=== PATIENT | male | born 1970 | race Caucasian/White ===

== ENCOUNTER 2017-03-24 13:19 | Emergency (ER) | payer OTHER ==
[2017-03-24 13:30] VITALS: TEMP 98.3; BMI 32.3
[2017-03-24] MEDS ORDERED: NAPROXEN 500 MG TABLET (FP) PO ONE (13:51)
[2017-03-24] MEDS ORDERED: CYCLOBENZAPRINE HCL 10 MG TABLET (FP) PO ONE (13:51)
[2017-03-24] MEDS ORDERED: CYCLOBENZAPRINE HCL 10 MG TABLET (FP) ONE (14:35)
[2017-03-24] MEDS ORDERED: NAPROXEN 500 MG TABLET (FP) ONE (14:35)
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
[2017-03-24 18:01] VITALS: BP 150/95; PULSE 86
== END 2017-03-24 18:01 | disposition home or self-care (01) ==
LOC: JER 13:19
DX: M25.512 Pain in left shoulder (principal); M25.562 Pain in left knee; V43.52XA Car driver injured in collision with other type car in traffic accident, initial encounter; Y92.414 Local residential or business street as the place of occurrence of the external cause; Y93.89 Activity, other specified; Y99.0 Civilian activity done for income or pay
CPT/HCPCS: 73030-TC-LT-FY; 73562-TC-LT-FY; 99282-25

== ENCOUNTER 2023-01-20 12:05 | Emergency (ER) | payer OTHER, BC ==
[2023-01-20] MEDS ORDERED: KETOROLAC TROMETHAMINE 30 MG/1 ML VIAL IM ONE (12:28)
[2023-01-20] MEDS ORDERED: diazePAM 5 MG TABLET PO ONE (12:28)
[2023-01-20] MEDS ORDERED: diazePAM 5 MG TABLET ONE (12:36)
[2023-01-20] MEDS ORDERED: KETOROLAC TROMETHAMINE 30 MG/1 ML VIAL ONE (12:36)
[2023-01-20 12:50] VITALS: BP 144/99; PULSE 87; RESP 16; TEMP 97.8; BMI 33.3
== END 2023-01-20 14:00 | disposition home or self-care (01) ==
LOC: FER 12:05
PROC: 3E0233Z Introduction of Anti-inflammatory into Muscle, Percutaneous Approach (ICD-10-PCS; principal; 2023-01-20)
DX: S49.92XA Unspecified injury of left shoulder and upper arm, initial encounter (principal); M54.2 Cervicalgia; M25.512 Pain in left shoulder; R07.81 Pleurodynia; W01.0XXA Fall on same level from slipping, tripping and stumbling without subsequent striking against object, initial encounter; Y99.0 Civilian activity done for income or pay
CPT/HCPCS: 71046-TC-FY; 71101-TC-LT-FY; 73030-TC-LT-FY; 99284-25

== ENCOUNTER 2023-07-12 13:09 | Emergency (ER) | payer OTHER ==
[2023-07-12 13:18] VITALS: BP 131/72; PULSE 87; RESP 18; TEMP 98.6; BMI 33.5
[2023-07-12] MEDS ORDERED: CEPHALEXIN MONOHYDRATE 500 MG CAPSULE (UD) ONE (14:22)
[2023-07-12] MEDS ORDERED: DIPHTH,PERTUSS(ACELL),TET 0.5 ML DISP.SYRIN IM ONE (14:22)
[2023-07-12] MEDS ORDERED: SULFAMETHOXAZOLE/TRIMETHOPRIM 800MG/160MG D.S. TABLET ONE (14:22)
[2023-07-12] MEDS: SULFAMETHOXAZOLE/TRIMETHOPRIM 800MG/160MG D.S. TABLET PO ONE (14:25)
[2023-07-12] MEDS: DIPHTH,PERTUSS(ACELL),TET 0.5 ML DISP.SYRIN IM ONE (14:25)
[2023-07-12] MEDS: CEPHALEXIN MONOHYDRATE 500 MG CAPSULE (UD) PO ONE (14:25)
== END 2023-07-12 14:26 | disposition home or self-care (01) ==
LOC: JERFT 13:09
PROC: 3E0234Z Introduction of Serum, Toxoid and Vaccine into Muscle, Percutaneous Approach (ICD-10-PCS; principal; 2023-07-12)
DX: S81.802A Unspecified open wound, left lower leg, initial encounter (principal); W26.8XXA Contact with other sharp object(s), not elsewhere classified, initial encounter; Z23 Encounter for immunization
CPT/HCPCS: 90715; 99283-25